=== PATIENT | male | born 1970 | race Caucasian/White ===

== ENCOUNTER 2019-05-13 18:10 | Emergency (ER) | payer MEDICAID, OTHER ==
[~2019-05-13] VITALS: Ht 160 cm; Wt 75.0 kg
[~2019-05-13 18:10] MED LIST: CEPH-443 PO
[2019-05-13 18:13] VITALS: Ht 160 cm; Wt 75.0 kg
[2019-05-13] MEDS ORDERED: OXYMETAZOLINE 0.05% NASAL SPRAY (15 ML) NASAL ONE (19:30)
[2019-05-13 20:42] VITALS: BP 156/102; PULSE 78; RESP 20
== END 2019-05-13 20:44 | disposition home or self-care (01) ==
LOC: EDBD 18:10 → FTE 18:10
DX: R04.0 Epistaxis (principal)
CPT/HCPCS: 30903; Z7502; Z7610

== ENCOUNTER 2019-05-15 09:52 | Emergency (ER) | payer MEDICAID ==
[~2019-05-15] VITALS: Wt 63.6 kg
[2019-05-15 11:13] VITALS: BP 156/77; PULSE 69; RESP 20
== END 2019-05-15 11:14 | disposition home or self-care (01) ==
LOC: FTE 09:52
DX: Z48.00 Encounter for change or removal of nonsurgical wound dressing (principal)
CPT/HCPCS: 99282